=== PATIENT | female | born 1965 | race Caucasian/White ===

== ENCOUNTER → 2016-11-02 16:32 | Outpatient (CLI) | payer MEDICAID | END | disposition home or self-care (01) | LOC: D.MAMMO 10:30 | DX: N63 Unspecified lump in breast (principal) ==

== ENCOUNTER 2018-02-16 07:56 | Outpatient (CLI) | payer MEDICAID | END 2018-02-16 23:59 | disposition home or self-care (01) | LOC: D.MAMMO 07:56 | DX: Z12.31 Encounter for screening mammogram for malignant neoplasm of breast (principal) ==

== ENCOUNTER 2019-03-29 09:00 | Outpatient (CLI) | payer MEDICAID | END 2019-03-29 10:00 | disposition home or self-care (01) | LOC: D.MAMMO 09:00 | PROVIDERS: ATTEND Anesthesiology | DX: N64.4 Mastodynia (principal) ==

== ENCOUNTER 2020-06-19 15:30 | Outpatient (CLI) | payer MEDICAID | END 2020-06-19 23:59 | disposition home or self-care (01) | LOC: D.MAMMO 15:30 | PROVIDERS: ATTEND Anesthesiology | DX: Z12.31 Encounter for screening mammogram for malignant neoplasm of breast (principal) ==